=== PATIENT | female | born 1940 | race Caucasian/White ===

== ENCOUNTER 2016-11-15 19:14 | Emergency (ER) | payer MEDICARE, OTHER ==
[~2016-11-15] VITALS: Ht 154.9 cm; Wt 100.8 kg
[2016-11-15] VITALS (7 sets, daily range): BP systolic 199–236; BP diastolic 102–125; PULSE 64–81; RESP 18; TEMP 97.6; O2SAT 96–98
[~2016-11-15 19:14] MED LIST: ALPR0.25 PO; ARMO60TA PO; CALC0.5C6 PO; CLON0.1T PO; FLUO40CA PO; HYDR-3801 PO; LOSA100T PO
[2016-11-15] MEDS ORDERED: METOCLOPRAMIDE HCL 10 MG/2 ML VIAL IV PUSH ONE (20:00)
[2016-11-15] MEDS ORDERED: diphenhydrAMINE HCL 50 MG/ML VIAL IVP ONE (20:00)
[2016-11-15] MEDS ORDERED: KETOROLAC TROMETHAMINE 30 MG/ML (IVP) VIAL IVP ONE (20:00)
[2016-11-15] MEDS ORDERED: BENI40TA3 PO (20:02)
--- NOTE | 2016-11-15 20:15 | PD ---
HPI Chief Complaint: Hypertension Time Seen by Provider: 19:58 Travel History International Travel<30 days: No Contact w/Intl Traveler<30days: No Traveled to known affect area: No History of Present Illness HPI Patient is a 76-year-old female presents today with a bifrontal headache left greater than right with pain behind her high gradual in onset and not the worst headache she's ever had. Patient states she took her blood pressure multiple times at home and noticed was elevated. She states her blood pressure is managed primarily by her primary care physician Dr. Su, she takes Benicar as well as hydralazine. Patient states she used to follow with a auto inspection specialist Dr. Hays who had her on multiple antihypertensives with Dr. Su took her off some of them. Patient states she has an appointment with auto inspection specialist but not until February. Patient states that she has been here before and indeed her records show that she was here approximate 4 weeks ago for very similar presentation. She had a CAT scan as well as labs at that time she was given clonidine and hydralazine in the emergency department as well. Patient denies any chest pain shortness of breath dysuria blood in the urine at this time. Denies thunderclap presentation. PFSH Past Medical History Arthritis: Yes Asthma: No Anxiety: Yes Depression: No Heart Rhythm Problems: No Cancer: Yes (BASAL CELL SKIN CA) Cardiovascular Problems: Yes High Cholesterol: Yes Chest Pain: No Congestive Heart Failure: No COPD: No Diabetes: No Diminished Hearing: No Endocrine: Yes GERD: No Genitourinary: No Hepatitis: No Hiatal Hernia: No Hypertension: Yes Immune Disorder: No Implanted Vascular Access Dvce: Yes Medical other: Yes (GOUT - ANKLES) Musculoskeletal: Yes (ARTHRITIS, BACK PROBLEMS, SIATICA) Neurologic: No Psychiatric: Yes (CLAUSTROPHOBIC, ANXIETY,DEPRESSION) Reproductive: Yes (POST MENOPAUSAL BLEEDING, OVARIAN CYST) Respiratory: Yes (SLEEP APNEA) Immunizations Current: Yes Sleep Apnea: Yes Thyroid Disease: Yes Ulcer: No Tetanus Vaccination: Unknown Influenza Vaccination: Yes ?: Not Menopausal: Yes : 3 Para: 3 Miscarriage: 0 : 0 Past Surgical History Abdominal Surgery: Yes (CHOLECYSTECTOMY 1997) Cardiac Surgery: No Cholecystectomy: Yes Ear Surgery: No Endocrine Surgery: No Eye Surgery: No Genitourinary Surgery: Yes (PARTIAL LEFT KIDNEY REMOVAL--1967) Gynecologic Surgery: No Hysterectomy: Yes Joint Replacement: Yes (BILATERAL KNEES) Oral Surgery: No Pacemaker: No Thoracic Surgery: No Other Surgery: Yes (SALAVARY GLAND - LEFT) Social History Alcohol Use: No Tobacco Use: No Substance Use: No Allergies-Medications (Allergen,Severity, Reaction): Coded Allergies: Stelazine (Verified Allergy, Severe, 11/15/16) Reported Meds & Prescriptions Reported Meds & Active Scripts Active Reported Benicar (Olmesartan) 40 Mg Tab 40 Mg PO DAILY Hydralazine (Hydralazine HCl) 100 Mg Tab 100 Mg PO BID Take with meals Alprazolam 0.25 Mg Tab 0.25 Mg PO Q8H PRN Calcitriol 0.5 Mcg Cap 0.5 Mcg PO DAILY Fluoxetine (Fluoxetine HCl) 40 Mg Cap 40 Cap PO DAILY [place] Thyroid (Thyroid) 60 Mg Tab 60 Mg PO DAILY Review of Systems Except as stated in HPI: all other systems reviewed are Neg Physical Exam Narrative GENERAL: Well-developed well-nourished no apparent distress appears comfortable. SKIN: Warm and dry. HEAD: Atraumatic. Normocephalic. EYES: Pupils equal and round. No scleral icterus. No injection or drainage. ENT: No nasal bleeding or discharge. Mucous membranes pink and moist. NECK: Trachea midline. No JVD. CARDIOVASCULAR: Regular rate and rhythm. No murmur appreciated. RESPIRATORY: No accessory muscle use. Clear to auscultation. Breath sounds equal bilaterally. GASTROINTESTINAL: Abdomen soft, non-tender, nondistended. Hepatic and splenic margins not palpable. MUSCULOSKELETAL: No obvious deformities. No clubbing. No cyanosis. No edema. NEUROLOGICAL: Awake and alert. Cranial nerves II through XII are grossly intact and nonfocal, 5 out of 5 strength in all 4 extremities. PSYCHIATRIC: Appropriate mood and affect; insight and judgment normal. Data Data Last Documented VS Vital Signs Date Time Temp Pulse Resp B/P Pulse Ox O2 Delivery O2 Flow Rate FiO2 11/15/16 22:37 75 18 210/110 97 11/15/16 22:27 Room Air 11/15/16 19:35 97.6 Orders Complete Blood Count With Diff (11/15/16 19:58) Comprehensive Metabolic Panel (11/15/16 19:58) Ecg Monitoring (11/15/16 19:58) Iv Access Insert/Monitor (11/15/16 19:58) Oximetry (11/15/16 19:58) Ketorolac Inj (Toradol Inj) (11/15/16 20:00) Diphenhydramine Inj (Benadryl Inj) (11/15/16 20:00) Metoclopramide Inj (Reglan Inj) (11/15/16 20:00) Metoclopramide Inj (Reglan Inj) (11/15/16 22:00) Diphenhydramine Inj (Benadryl Inj) (11/15/16 21:15) Shoulder, Complete (>2vws) (11/15/16 ) Labs Laboratory Tests Test 11/15/16 20:15 White Blood Count 6.2 TH/MM3 Red Blood Count 4.26 MIL/MM3 Hemoglobin 12.9 GM/DL Hematocrit 38.2 % Mean Corpuscular Volume 89.7 FL Mean Corpuscular Hemoglobin 30.3 PG Mean Corpuscular Hemoglobin 33.8 % Concent Red Cell Distribution Width 12.0 % Platelet Count 264 TH/MM3 Mean Platelet Volume 8.4 FL Neutrophils (%) (Auto) 68.0 % Lymphocytes (%) (Auto) 19.9 % Monocytes (%) (Auto) 9.1 % Eosinophils (%) (Auto) 2.3 % Basophils (%) (Auto) 0.7 % Neutrophils # (Auto) 4.3 TH/MM3 Lymphocytes # (Auto) 1.2 TH/MM3 Monocytes # (Auto) 0.6 TH/MM3 Eosinophils # (Auto) 0.1 TH/MM3 Basophils # (Auto) 0.0 TH/MM3 CBC Comment DIFF FINAL Differential Comment Sodium Level 139 MEQ/L Potassium Level 3.9 MEQ/L Chloride Level 103 MEQ/L Carbon Dioxide Level 26.0 MEQ/L Anion Gap 10 MEQ/L Blood Urea Nitrogen 33 MG/DL Creatinine 1.30 MG/DL Estimat Glomerular Filtration 40 ML/MIN Rate Random Glucose 92 MG/DL Calcium Level 8.6 MG/DL Total Bilirubin 0.4 MG/DL Aspartate Amino Transf 20 U/L (AST/SGOT) Alanine Aminotransferase 20 U/L (ALT/SGPT) Alkaline Phosphatase 71 U/L Total Protein 6.6 GM/DL Albumin 2.9 GM/DL MDM Medical Decision Making Medical Screen Exam Complete: Yes Emergency Medical Condition: Yes Differential Diagnosis Headache, elevated blood pressure, hypertensive emergency extremely unlikely. Narrative Course Patient roomed in the emergency department, blood pressure is elevated. By a [facility] clinical position paper there is no indication to lower her blood pressure acutely. Her headache is of benign nature and extremely unlikely to have subarachnoid hemorrhage. We'll treat with Reglan and Benadryl. Reassess. Patient feeling somewhat better after first dose and was repeated and the patient's headache is nearly resolved this time. She appears well in no apparent distress. No indication for CAT scan at this time. The patient is stable for discharge, creatinine is at baseline otherwise labs today. Patient has no sign symptoms to suggest end organ failure and therefore not a hypertensive emergency. She has followed with a auto inspection specialist in the past for her blood pressure and discussed that she should call this auto inspection specialist for an appointment for blood pressure management. She is agreeable. Patient was discharged and While patient was leaving the hospital, she had a trip and fall on a rug in the lobby, and occurrence report is being filled out. Patient states she thinks her shoe discussed the floor and rolled the rug and she fell on the rug. She states she impacted her right side and did reach out to try and brace himself. She returned to her ER room and has complaints of right shoulder pain. Bilateral wrists are normal, bilateral elbows are negative , left shoulder is normal. Pulses motor and sensory intact in all 4 extremities. Compartments are soft. Her right shoulder has no swelling no bony tenderness no bruise. Patient denies any loss of consciousness. Denies any head neck or back trauma. Patient thinks that she thinks is just a sprain.. She does take care of her at home who is in a wheelchaira nd for that reason agrees for an x-ray. She was offered pain medicine for her shoulder and declined. X-ray was obtained which shows no acute bony abnormality. Patient was reexamined has no bruising no abrasion no swelling about the right shoulder. It is nontender to palpation. She is having an occasional spasm in the shoulder. C-spine is nontender and no step-off, head is atraumatic and normocephalic. Diagnosis Primary Impression: Headache Qualified Code: R51 - Nonintractable headache, unspecified chronicity pattern , unspecified headache type Additional Impression: Hypertension Qualified Code: I10 - Essential hypertension Disposition: 01 DISCHARGE HOME Condition: Stable Dean Mills MD Nov 15, 2016 20:15
[2016-11-15 20:19] LABS: AUTOMATED NEUTROPHIL # 4.3 TH/MM3 (1.8-7.7); BASOPHIL % 0.7 % (0.0-2.0); EOSINOPHIL # 0.1 TH/MM3 (0-0.4); EOSINOPHIL % 2.3 % (0.0-4.0); HEMATOCRIT 38.2 % (35.0-46.0); HEMO FLAGS DIFF FINAL; LYMPH % 19.9 % (9.0-44.0); LYMPHOCYTE # 1.2 TH/MM3 (1.0-4.8); MEAN CELL VOLUME 89.7 FL (80.0-100.0); MEAN CORPUSCULAR HEMOGLOBIN 30.3 PG (27.0-34.0); MEAN CORPUSCULAR HGB CONC 33.8 % (32.0-36.0); MONO % 9.1 % (0.0-8.0); PLATELET COUNT 264 TH/MM3 (150-450); RED BLOOD COUNT 4.26 MIL/MM3 (4.00-5.30); WHITE BLOOD COUNT 6.2 TH/MM3 (4.0-11.0)
[2016-11-15 20:27] LABS: CHLORIDE 103 MEQ/L (98-107); POTASSIUM 3.9 MEQ/L (3.5-5.1); SODIUM (NA) 139 MEQ/L (136-145)
[2016-11-15 20:31] LABS: ANION GAP 10 MEQ/L (5-15); BLOOD UREA NITROGEN 33 MG/DL (7-18)
[2016-11-15 20:34] LABS: ALT (GPT) 20 U/L (10-53); AST (GOT) 20 U/L (15-37); GLOMERULAR FILTRATION RATE 40 ML/MIN (>89)
[2016-11-15 20:36] LABS: TOTAL BILIRUBIN ADULT 0.4 MG/DL (0.2-1.0)
[2016-11-15 20:37] LABS: ALKALINE PHOSPHATASE 71 U/L (45-117)
[2016-11-15] MEDS ORDERED: diphenhydrAMINE HCL 50 MG/ML VIAL IV PUSH ONE (21:15)
[2016-11-15] MEDS ORDERED: METOCLOPRAMIDE HCL 10 MG/2 ML VIAL IV PUSH SCH (22:00)
--- NOTE | 2016-11-15 22:27 | RADHPO ---
EXAM DATE/TIME: 11/15/2016 22:02 [facility] COMPARISON: No previous studies available for comparison. INDICATIONS : Right shoulder pain post fall today. MEDICAL HISTORY : None. SURGICAL HISTORY : None. ENCOUNTER: Initial ACUITY: 1 day PAIN SCORE: 5/10 LOCATION: Right shoulder. FINDINGS: Multiple view examination of the right shoulder demonstrates no evidence of fracture or dislocation. The glenohumeral and acromioclavicular joints are maintained. There is normal range of motion betwe en internal and external rotation. Bony mineralization is normal. Mild degenerative changes of the a .c. joint CONCLUSION: No acute bony injury. Mild degenerative changes in the a.c. joint Colt Durbin MD on November 15, 2016 at 22:24 Board Certified Radiologist. This report was verified electronically.
== END 2016-11-15 22:38 | disposition home or self-care (01) ==
LOC: PHED 19:14
DX: R51 Headache (principal); I10 Essential (primary) hypertension; M25.511 Pain in right shoulder; M62.838 Other muscle spasm; E78.00 Pure hypercholesterolemia, unspecified; E07.9 Disorder of thyroid, unspecified; G47.30 Sleep apnea, unspecified; Z87.09 Personal history of other diseases of the respiratory system; Z86.59 Personal history of other mental and behavioral disorders; Z87.2 Personal history of diseases of the skin and subcutaneous tissue; Z86.79 Personal history of other diseases of the circulatory system; Z87.39 Personal history of other diseases of the musculoskeletal system and connective tissue; W01.0XXA Fall on same level from slipping, tripping and stumbling without subsequent striking against object, initial encounter; Y92.238 Other place in hospital as the place of occurrence of the external cause
CPT/HCPCS: 73030; 80053; 85025; 96374; 96375; 96376; 99284; J1200; J1885; J2765

== ENCOUNTER → 2017-03-03 | Outpatient (CLI) | payer MEDICARE ==
[~2017-03-03] MED LIST changes: +BENI40TA3 PO; -CLON0.1T PO; -LOSA100T PO
[2017-03-03 16:00] LABS: ALT (GPT) 45 U/L (10-53); ANION GAP 7 MEQ/L (5-15); AST (GOT) 36 U/L (15-37); BICARBONATE 23.3 MEQ/L (21.0-32.0); BLOOD UREA NITROGEN 37 MG/DL (7-18); CHLORIDE 110 MEQ/L (98-107); GLOMERULAR FILTRATION RATE 26 ML/MIN (>89); GLUCOSE,FASTING 88 MG/DL (74-99); POTASSIUM 6.5 MEQ/L (3.5-5.1); SODIUM (NA) 140 MEQ/L (136-145)
[2017-03-03 16:10] LABS: ALKALINE PHOSPHATASE 71 U/L (45-117); HDL CHOLESTEROL 71.4 MG/DL (40.0-60.0); LDL CHOLESTEROL 110 MG/DL (0-99); TOTAL BILIRUBIN ADULT 0.5 MG/DL (0.2-1.0)
[2017-03-03 16:15] LABS: MICRO ALBUMIN RANDOM URINE RAW 81.8 MG/L (0.0-30.0)
== END ==
LOC: PLAB 12:36
PROVIDERS: ATTEND Family Medicine
DX: N18.3 Chronic kidney disease, stage 3 (moderate) (principal); I12.9 Hypertensive chronic kidney disease with stage 1 through stage 4 chronic kidney disease, or unspecified chronic kidney disease; N25.81 Secondary hyperparathyroidism of renal origin; E78.4 Other hyperlipidemia; M10.9 Gout, unspecified
CPT/HCPCS: 36415; 80053; 80061; 82043; 84443; 84550

== ENCOUNTER → 2017-08-20 | Outpatient (CLI) | payer MEDICARE ==
[2017-08-20 14:00] LABS: AUTOMATED NEUTROPHIL # 4.3 TH/MM3 (1.8-7.7); BASOPHIL # 0.1 TH/MM3 (0-0.2); BASOPHIL % 1.1 % (0.0-2.0); EOSINOPHIL # 0.1 TH/MM3 (0-0.4); EOSINOPHIL % 1.5 % (0.0-4.0); HEMATOCRIT 37.7 % (35.0-46.0); HEMO FLAGS DIFF FINAL; LYMPH % 13.3 % (9.0-44.0); LYMPHOCYTE # 0.8 TH/MM3 (1.0-4.8); MEAN CORPUSCULAR HEMOGLOBIN 30.8 PG (27.0-34.0); MEAN CORPUSCULAR HGB CONC 32.8 % (32.0-36.0); MONO % 7.8 % (0.0-8.0); NEUT % 76.3 % (16.0-70.0); PLATELET COUNT 308 TH/MM3 (150-450); RED BLOOD COUNT 4.01 MIL/MM3 (4.00-5.30); RED CELL DISTRIBUTION WIDTH 13.6 % (11.6-17.2); WHITE BLOOD COUNT 5.7 TH/MM3 (4.0-11.0)
[2017-08-20 14:05] LABS: BLOOD, URINE NEG (NEG); COMMENT (UR) CULTURE INDICATED; CULTURE IF INDICATED CULTURE INDICATED; GLUCOSE,URINE 300 mg/dL (NEG); KETONE, URINE NEG (NEG); MUCUS URINE FEW /lpf (OCC); NITRITE,URINE NEG (NEG); PH, URINE 5.5 (5.0-8.5); SQUAMOUS EPITHELIAL CELL URINE 2 /hpf (0-5); URINE COLOR YELLOW (YELLW/STRAW)
[2017-08-20 14:06] LABS: BACTERIA, URINE RARE /hpf
[2017-08-20 14:18] LABS: ANION GAP 9 MEQ/L (5-15); AST (GOT) 17 U/L (15-37); BICARBONATE 24.2 MEQ/L (21.0-32.0); BLOOD UREA NITROGEN 32 MG/DL (7-18); CHLORIDE 103 MEQ/L (98-107); GLOMERULAR FILTRATION RATE 33 ML/MIN (>89); GLUCOSE,FASTING 80 MG/DL (74-99); POTASSIUM 3.9 MEQ/L (3.5-5.1); SODIUM (NA) 136 MEQ/L (136-145)
[2017-08-20 14:20] LABS: ALT (GPT) 17 U/L (10-53)
[2017-08-20 14:29] LABS: ALKALINE PHOSPHATASE 84 U/L (45-117); HDL CHOLESTEROL 75.4 MG/DL (40.0-60.0); LDL CHOLESTEROL 119 MG/DL (0-99); TOTAL BILIRUBIN ADULT 0.4 MG/DL (0.2-1.0)
== END ==
LOC: PLAB 10:53
PROVIDERS: ATTEND Family Medicine
DX: M10.9 Gout, unspecified (principal); E78.4 Other hyperlipidemia; E03.9 Hypothyroidism, unspecified; I12.9 Hypertensive chronic kidney disease with stage 1 through stage 4 chronic kidney disease, or unspecified chronic kidney disease; N18.3 Chronic kidney disease, stage 3 (moderate); R82.90 Unspecified abnormal findings in urine
CPT/HCPCS: 36415; 80053; 80061; 81001; 82043; 84443; 84550; 85025; 87086

== ENCOUNTER → 2017-09-04 | Outpatient (CLI) | payer MEDICARE ==
[2017-09-04 13:38] LABS: BICARBONATE 26.3 MEQ/L (21.0-32.0); POTASSIUM 3.9 MEQ/L (3.5-5.1)
[2017-09-04 13:48] LABS: FREE T4 1.13 NG/DL (0.76-1.46)
== END ==
LOC: PLAB 09:41
DX: E03.9 Hypothyroidism, unspecified (principal)
CPT/HCPCS: 36415; 80048; 84439; 84443

== ENCOUNTER → 2017-09-18 | Outpatient (CLI) | payer MEDICARE ==
[~2017-09-18] MED LIST changes: +BENI40TA29 PO; -BENI40TA3 PO; +CALC0.5C PO; -CALC0.5C6 PO
[2017-09-18 14:03] LABS: ANION GAP 6 MEQ/L (5-15); AST (GOT) 28 U/L (15-37); BICARBONATE 27.3 MEQ/L (21.0-32.0); BLOOD UREA NITROGEN 36 MG/DL (7-18); CHLORIDE 106 MEQ/L (98-107); GLOMERULAR FILTRATION RATE 39 ML/MIN (>89); GLUCOSE,FASTING 85 MG/DL (74-99); POTASSIUM 3.9 MEQ/L (3.5-5.1); SODIUM (NA) 139 MEQ/L (136-145)
[2017-09-18 14:14] LABS: ALKALINE PHOSPHATASE 75 U/L (45-117); ALT (GPT) 29 U/L (10-53); HDL CHOLESTEROL 79.1 MG/DL (40.0-60.0); LDL CHOLESTEROL 137 MG/DL (0-99); TOTAL BILIRUBIN ADULT 0.3 MG/DL (0.2-1.0); URIC ACID 2.6 MG/DL (2.6-6.0)
== END ==
LOC: PLAB 09:36
PROVIDERS: ATTEND Family Medicine
DX: M10.9 Gout, unspecified (principal); E78.4 Other hyperlipidemia; E03.9 Hypothyroidism, unspecified; N18.3 Chronic kidney disease, stage 3 (moderate)
CPT/HCPCS: 36415; 80053; 80061; 84443; 84550

== ENCOUNTER → 2017-10-15 | Outpatient (CLI) | payer MEDICARE ==
[2017-10-15 13:33] LABS: ALT (GPT) 22 U/L (10-53); ANION GAP 6 MEQ/L (5-15); AST (GOT) 20 U/L (15-37); BICARBONATE 28.5 MEQ/L (21.0-32.0); BLOOD UREA NITROGEN 35 MG/DL (7-18); CHLORIDE 107 MEQ/L (98-107); GLOMERULAR FILTRATION RATE 38 ML/MIN (>89); GLUCOSE,FASTING 78 MG/DL (74-99); POTASSIUM 4.2 MEQ/L (3.5-5.1); SODIUM (NA) 141 MEQ/L (136-145); URIC ACID 6.1 MG/DL (2.6-6.0)
[2017-10-15 13:43] LABS: ALKALINE PHOSPHATASE 67 U/L (45-117); TOTAL BILIRUBIN ADULT 0.3 MG/DL (0.2-1.0)
[2017-10-15 13:54] LABS: MICRO ALBUMIN RANDOM URINE RAW 36.5 MG/L (0.0-30.0)
== END ==
LOC: PLAB 09:59
PROVIDERS: ATTEND Family Medicine
DX: N18.3 Chronic kidney disease, stage 3 (moderate) (principal); E55.9 Vitamin D deficiency, unspecified; R80.9 Proteinuria, unspecified; M10.9 Gout, unspecified; E03.9 Hypothyroidism, unspecified
CPT/HCPCS: 36415; 80053; 82043; 82306; 84443; 84550

== ENCOUNTER → 2017-11-23 | Outpatient (CLI) | payer MEDICARE ==
[2017-11-23 14:01] LABS: BACTERIA, URINE RARE /hpf; BILIRUBIN, URINE NEG (NEG); BLOOD, URINE NEG (NEG); GLUCOSE,URINE NEG (NEG); HYALINE CAST, URINE 3 /lpf (RARE); KETONE, URINE NEG (NEG); NITRITE,URINE NEG (NEG); SQUAMOUS EPITHELIAL CELL URINE 2 /hpf (0-5); TRANSITIONAL EPI CELLS, URINE <1 /hpf; URINE COLOR YELLOW (YELLW/STRAW); URINE LEUKOCYTE ESTERASE SMALL (NEG)
[2017-11-23 14:06] LABS: ALBUMIN 3.3 GM/DL (3.4-5.0); AST (GOT) 19 U/L (15-37); BICARBONATE 28.9 MEQ/L (21.0-32.0); BLOOD UREA NITROGEN 25 MG/DL (7-18); CALCIUM 9.2 MG/DL (8.5-10.1); CHLORIDE 104 MEQ/L (98-107); CREATININE 1.44 MG/DL (0.50-1.00); GLOMERULAR FILTRATION RATE 35 ML/MIN (>89); GLUCOSE,FASTING 90 MG/DL (74-99); SODIUM (NA) 140 MEQ/L (136-145)
[2017-11-23 14:07] LABS: ALT (GPT) 29 U/L (10-53)
[2017-11-23 14:16] LABS: ALKALINE PHOSPHATASE 75 U/L (45-117); TOTAL BILIRUBIN ADULT 0.5 MG/DL (0.2-1.0); TOTAL PROTEIN 7.1 GM/DL (6.4-8.2)
== END ==
LOC: PLAB 09:28
PROVIDERS: ATTEND Family Medicine
DX: R80.9 Proteinuria, unspecified (principal); N18.3 Chronic kidney disease, stage 3 (moderate); M10.9 Gout, unspecified; E03.9 Hypothyroidism, unspecified; E55.9 Vitamin D deficiency, unspecified; N39.41 Urge incontinence
CPT/HCPCS: 36415; 80053; 81001; 82043; 82306; 84443; 84550

== ENCOUNTER → 2017-12-14 | Outpatient (CLI) | payer MEDICARE ==
[2017-12-14 16:33] LABS: AUTOMATED NEUTROPHIL # 4.5 TH/MM3 (1.8-7.7); BASOPHIL # 0.1 TH/MM3 (0-0.2); EOSINOPHIL # 0.1 TH/MM3 (0-0.4); EOSINOPHIL % 1.4 % (0.0-4.0); HEMATOCRIT 34.1 % (35.0-46.0); HEMOGLOBIN 11.3 GM/DL (11.6-15.3); LYMPH % 17.3 % (9.0-44.0); LYMPHOCYTE # 1.1 TH/MM3 (1.0-4.8); MEAN CELL VOLUME 90.9 FL (80.0-100.0); MEAN CORPUSCULAR HEMOGLOBIN 30.2 PG (27.0-34.0); MEAN CORPUSCULAR HGB CONC 33.2 % (32.0-36.0); MONO % 8.5 % (0.0-8.0); MONOCYTE # 0.5 TH/MM3 (0-0.9); NEUT % 71.8 % (16.0-70.0); PLATELET COUNT 264 TH/MM3 (150-450); RED BLOOD COUNT 3.76 MIL/MM3 (4.00-5.30); RED CELL DISTRIBUTION WIDTH 14.6 % (11.6-17.2); WHITE BLOOD COUNT 6.3 TH/MM3 (4.0-11.0)
[2017-12-14 16:58] LABS: ALBUMIN 3.3 GM/DL (3.4-5.0); AST (GOT) 19 U/L (15-37); BLOOD UREA NITROGEN 33 MG/DL (7-18); CALCIUM 9.4 MG/DL (8.5-10.1); CHLORIDE 108 MEQ/L (98-107); CREATININE 1.41 MG/DL (0.50-1.00); GLOMERULAR FILTRATION RATE 36 ML/MIN (>89); GLUCOSE,RANDOM 82 MG/DL (74-106); SODIUM (NA) 140 MEQ/L (136-145)
[2017-12-14 16:59] LABS: ALT (GPT) 21 U/L (10-53); C-REACTIVE PROTEIN LESS THAN 0.29 MG/DL (0.00-0.30)
[2017-12-14 17:01] LABS: ALKALINE PHOSPHATASE 66 U/L (45-117); TOTAL BILIRUBIN ADULT 0.5 MG/DL (0.2-1.0); WESTERGREN SEDIMENTATION RATE 18 mm/hr (0-30)
[2017-12-14 17:20] LABS: RHEUMATOID FACTOR SCREEN NEGATIVE (NEGATIVE)
[2017-12-14 17:33] LABS: BILIRUBIN, URINE NEG (NEG); BLOOD, URINE NEG (NEG); GLUCOSE,URINE NEG (NEG); KETONE, URINE NEG (NEG); NITRITE,URINE NEG (NEG); PH, URINE 5.5 (5.0-8.5); SQUAMOUS EPITHELIAL CELL URINE 1 /hpf (0-5); URINE COLOR YELLOW (YELLW/STRAW); URINE LEUKOCYTE ESTERASE SMALL (NEG)
[2017-12-15 11:31] LABS: HEPATITIS B SURFACE ANTIGEN NEGATIVE (NEGATIVE)
[2017-12-15 12:46] LABS: HEPATITIS C AB IgG NEGATIVE (NEGATIVE)
[2017-12-17 13:53] LABS: HEPATITIS B CORE TOTAL AB NONREACTIVE (NON-REACTVE)
== END ==
LOC: PLAB 14:21
DX: M19.90 Unspecified osteoarthritis, unspecified site (principal)
CPT/HCPCS: 36415; 80053; 81001; 85025; 85652; 86140; 86200; 86317; 86430; 86704; 86803; 87340

== ENCOUNTER 2017-12-26 11:00 | Emergency (ER) | payer MEDICARE ==
[~2017-12-26] VITALS: Ht 154.9 cm; Wt 102.5 kg
[2017-12-26 11:11] VITALS: BP 158/74; PULSE 82; RESP 16; TEMP 97.4; O2SAT 97
[2017-12-26] MEDS ORDERED: DOXA1TAB36 PO (12:10)
[2017-12-26] MEDS ORDERED: TRAZ50TA12 PO (12:10)
[2017-12-26] MEDS ORDERED: ALLO300T2 PO (12:10)
[2017-12-26] MEDS ORDERED: AMLO10TA2 PO (12:10)
[2017-12-26] MEDS ORDERED: ISOS30TA3 PO (12:11)
--- NOTE | 2017-12-26 12:29 | PD ---
HPI Chief Complaint: Abdominal Pain Time Seen by Provider: 12:13 Travel History International Travel<30 days: No Contact w/Intl Traveler<30days: No Traveled to known affect area: No History of Present Illness HPI The patient was seen and examined in the presence of the nurse. This patient complains of abdominal pain. Duration 3 days. Severity is moderate. Location is bilateral lower quadrants. No vomiting or diarrhea or fever. Has decreased appetite. No alleviating factors. No exacerbating factors. Said diverticulitis in the past. PFSH Past Medical History Arthritis: Yes Asthma: No Anxiety: Yes Depression: Yes Heart Rhythm Problems: No Cancer: Yes (BASAL CELL SKIN CA) Cardiovascular Problems: Yes (htn on meds, chf) High Cholesterol: Yes Chest Pain: No Congestive Heart Failure: No COPD: No Diabetes: No Diminished Hearing: No Endocrine: Yes GERD: No Genitourinary: No Hepatitis: No Hiatal Hernia: No Hypertension: Yes Immune Disorder: No Medical other: Yes (GOUT - ANKLES) Musculoskeletal: Yes (ARTHRITIS, BACK PROBLEMS, SIATICA) Neurologic: No Psychiatric: Yes (CLAUSTROPHOBIC, ANXIETY,DEPRESSION) Reproductive: Yes (POST MENOPAUSAL BLEEDING, OVARIAN CYST) Respiratory: Yes (SLEEP APNEA) Immunizations Current: Yes Sleep Apnea: Yes Thyroid Disease: Yes (hypo) Ulcer: No Tetanus Vaccination: < 5 Years Influenza Vaccination: Yes ?: Not Menopausal: Yes : 3 Para: 3 Miscarriage: 0 : 0 Past Surgical History Abdominal Surgery: Yes (CHOLECYSTECTOMY 1997) Cardiac Surgery: No Cholecystectomy: Yes Ear Surgery: No Endocrine Surgery: No Eye Surgery: No Genitourinary Surgery: Yes (PARTIAL LEFT KIDNEY REMOVAL--1967) Gynecologic Surgery: No Hysterectomy: Yes Joint Replacement: Yes (BILATERAL KNEES and right hip) Oral Surgery: No Pacemaker: No Thoracic Surgery: No Other Surgery: Yes (SALAVARY GLAND - LEFT) Social History Alcohol Use: No Tobacco Use: No Substance Use: No Allergies-Medications (Allergen,Severity, Reaction): Coded Allergies: trifluoperazine (Unverified Allergy, Severe, 12/26/17) Reported Meds & Prescriptions Reported Meds & Active Scripts Active Flagyl (Metronidazole) 500 Mg Tab 500 Mg PO QID 10 Days Cipro (Ciprofloxacin HCl) 500 Mg Tab 500 Mg PO BID 10 Days Percocet (Oxycodone-Acetaminophen) 5-325 mg Tab 1 Tab PO Q6H PRN Reported Isosorbide Mononitrate ER (Isosorbide Mononitrate) 30 Mg [place] 30 Mg PO DAILY Trazodone (Trazodone HCl) 50 Mg Tab 50 Mg PO HS Doxazosin (Doxazosin Mesylate) 1 Mg Tab 0.25 Mg PO DAILY Amlodipine (Amlodipine Besylate) 10 Mg Tab 10 Mg PO DAILY Allopurinol 300 Mg Tab 300 Mg PO DAILY Benicar (Olmesartan) 40 Mg Tab 40 Mg PO DAILY Hydralazine (Hydralazine HCl) 100 Mg Tab 100 Mg PO BID Take with meals Alprazolam 0.25 Mg Tab 0.25 Mg PO Q8H PRN Calcitriol 0.5 Mcg Cap 0.5 Mcg PO DAILY Fluoxetine (Fluoxetine HCl) 40 Mg Cap 40 Cap PO DAILY [place] Thyroid (Thyroid) 60 Mg Tab 60 Mg PO DAILY Review of Systems General / Constitutional: No: Fever Eyes: No: Visual changes HENT: No: Headaches Cardiovascular: No: Chest Pain or Discomfort Respiratory: No: Shortness of Breath Gastrointestinal: Positive: Abdominal Pain, Loss of Appetite Genitourinary: No: Dysuria Musculoskeletal: No: Pain Skin: No Rash Neurologic: No: Weakness Psychiatric: No: Depression Endocrine: No: Polydipsia Hematologic/Lymphatic: No: Easy Bruising Physical Exam Narrative GENERAL: Well-nourished, well-developed patient with abdominal pain . SKIN: Focused skin assessment reveals no rash and nodules. Skin is Warm and dry. HEAD: Atraumatic. Normocephalic. EYES: Pupils equal and round. No scleral icterus. No injection or drainage. ENT: No nasal bleeding or discharge. Mucous membranes pink and moist. NECK: Trachea midline. No JVD. CARDIOVASCULAR: Regular rate and rhythm. No murmur appreciated. RESPIRATORY: No accessory muscle use. Clear to auscultation. Breath sounds equal bilaterally. GASTROINTESTINAL: Abdomen soft, bilateral lower quadrant tenderness without rebound or guarding, nondistended. Hepatic and splenic margins not palpable. MUSCULOSKELETAL: No obvious deformities. No clubbing. No cyanosis. No edema. NEUROLOGICAL: Awake and alert. No obvious cranial nerve deficits. Motor grossly within normal limits. Normal speech. PSYCHIATRIC: Appropriate mood and affect; insight and judgment normal. Data Data Last Documented VS Vital Signs Date Time Temp Pulse Resp B/P (MAP) Pulse Ox O2 Delivery O2 Flow Rate FiO2 2/17/18 14:11 66 20 173/81 (111) 98 Room Air 12/26/17 11:11 97.4 Orders Orders Basic Metabolic Panel (Bmp) (12/26/17 12:19) Complete Blood Count With Diff (12/26/17 12:19) Prothrombin Time / Inr (Pt) (12/26/17 12:19) Act Partial Throm Time (Ptt) (12/26/17 12:19) Urinalysis - C+S If Indicated (12/26/17 12:19) Iv Access Insert/Monitor (12/26/17 12:19) NPO (12/26/17 12:19) Sodium Chloride 0.9% Flush (Ns Flush) (12/26/17 12:30) Ct Abd/Pel W/O Iv Contrast (12/26/17 12:19) Labs Laboratory Tests Test 12/26/17 12:30 12/26/17 13:15 White Blood Count 11.4 TH/MM3 Red Blood Count 4.04 MIL/MM3 Hemoglobin 11.9 GM/DL Hematocrit 36.3 % Mean Corpuscular Volume 89.9 FL Mean Corpuscular Hemoglobin 29.4 PG Mean Corpuscular Hemoglobin Concent 32.7 % Red Cell Distribution Width 13.6 % Platelet Count 229 TH/MM3 Mean Platelet Volume 8.3 FL Neutrophils (%) (Auto) 90.7 % Lymphocytes (%) (Auto) 4.9 % Monocytes (%) (Auto) 3.6 % Eosinophils (%) (Auto) 0.6 % Basophils (%) (Auto) 0.2 % Neutrophils # (Auto) 10.3 TH/MM3 Lymphocytes # (Auto) 0.6 TH/MM3 Monocytes # (Auto) 0.4 TH/MM3 Eosinophils # (Auto) 0.1 TH/MM3 Basophils # (Auto) 0.0 TH/MM3 CBC Comment DIFF FINAL Differential Comment Prothrombin Time 10.2 SEC Prothromb Time International Ratio 1.0 RATIO Activated Partial Thromboplast Time 27.3 SEC Blood Urea Nitrogen 27 MG/DL Creatinine 1.30 MG/DL Random Glucose 95 MG/DL Calcium Level 9.2 MG/DL Sodium Level 137 MEQ/L Potassium Level 4.1 MEQ/L Chloride Level 103 MEQ/L Carbon Dioxide Level 27.3 MEQ/L Anion Gap 7 MEQ/L Estimat Glomerular Filtration Rate 40 ML/MIN Urine Collection Type CLEAN CATCH Urine Color YELLOW Urine Turbidity CLEAR Urine pH 5.5 Urine Specific [place] 1.012 Urine Protein NEG mg/dL Urine Glucose (UA) NEG mg/dL Urine Ketones NEG mg/dL Urine Occult Blood NEG Urine Nitrite NEG Urine Bilirubin NEG Urine Leukocyte Esterase NEG Urine Squamous Epithelial Cells 0-5 /hpf Urine Transitional Epithelial Cells 0-5 /hpf Urine Amorphous Sediment FEW Microscopic Urinalysis Comment CULT NOT INDICATED Urine Collection Time 1315 [facility] [place] Medical Decision Making Medical Screen Exam Complete: Yes Emergency Medical Condition: Yes Medical Record Reviewed: Yes Differential Diagnosis Colitis, diverticulitis, AAA Narrative Course I have reviewed the patient's electronic medical record. I've ordered extensive abdominal pain workup at 1220 This includes labs and CT and urine Labs and urine are fairly normal. CT suggests mild to moderate diverticulitis I wrote her antibiotics and something for pain Stable for outpatient follow-up Diagnosis Primary Impression: Acute diverticulitis Additional Instructions: The patient was advised to follow up with their physician and return if they worsen. The patient was warned about potential sedation for the medications they will receive on prescription. Med/Other Pt SpecificInfo: Prescription(s) given Scripts Metronidazole (Flagyl) 500 Mg Tab 500 MG PO QID for Infection for 10 Days, TAB 0 Refills Prov: Dave Gallagher MD 12/26/17 Ciprofloxacin (Cipro) 500 Mg Tab 500 MG PO BID for Infection for 10 Days, #20 TAB 0 Refills Prov: Dave Gallagher MD 12/26/17 Oxycodone-Acetaminophen (Percocet) 5-325 mg Tab 1 TAB PO Q6H Y for PAIN, #20 TAB 0 Refills Prov: Dave Gallagher MD 12/26/17 Disposition: 01 DISCHARGE HOME Condition: Stable Dave Gallagher MD Dec 26, 2017 12:29
[2017-12-26] MEDS ORDERED: SODIUM CHLORIDE 0.9% FLUSH 10 ML FLUSH IV FLUSH PRN (12:30)
[2017-12-26 12:40] LABS: AUTOMATED NEUTROPHIL # 10.3 TH/MM3 (1.8-7.7); BASOPHIL % 0.2 % (0.0-2.0); EOSINOPHIL # 0.1 TH/MM3 (0-0.4); EOSINOPHIL % 0.6 % (0.0-4.0); HEMATOCRIT 36.3 % (35.0-46.0); HEMOGLOBIN 11.9 GM/DL (11.6-15.3); LYMPH % 4.9 % (9.0-44.0); LYMPHOCYTE # 0.6 TH/MM3 (1.0-4.8); MEAN CELL VOLUME 89.9 FL (80.0-100.0); MEAN CORPUSCULAR HEMOGLOBIN 29.4 PG (27.0-34.0); MEAN CORPUSCULAR HGB CONC 32.7 % (32.0-36.0); MEAN PLATELET VOLUME 8.3 FL (7.0-11.0); MONO % 3.6 % (0.0-8.0); MONOCYTE # 0.4 TH/MM3 (0-0.9); NEUT % 90.7 % (16.0-70.0); PLATELET COUNT 229 TH/MM3 (150-450); RED BLOOD COUNT 4.04 MIL/MM3 (4.00-5.30); RED CELL DISTRIBUTION WIDTH 13.6 % (11.6-17.2); WHITE BLOOD COUNT 11.4 TH/MM3 (4.0-11.0)
[2017-12-26 12:51] LABS: BICARBONATE 27.3 MEQ/L (21.0-32.0); CALCIUM 9.2 MG/DL (8.5-10.1)
[2017-12-26 12:54] LABS: CREATININE 1.3 MG/DL (0.50-1.00); PROTHROMBIN TIME - PATIENT 10.2 SEC (9.8-11.6)
[2017-12-26 13:34] LABS: BILIRUBIN, URINE NEG (NEG); BLOOD, URINE NEG (NEG); GLUCOSE,URINE NEG (NEG); KETONE, URINE NEG (NEG); NITRITE,URINE NEG (NEG); PH, URINE 5.5 (5.0-8.5); URINE LEUKOCYTE ESTERASE NEG (NEG)
[2017-12-26 13:43] LABS: URINE COLOR YELLOW (YELLW/STRAW)
[2017-12-26 13:44] LABS: AMORPHOUS SEDIMENT, URINE FEW; SQUAMOUS EPITHELIAL CELL URINE 0-5 /hpf (0-5); TRANSITIONAL EPI CELLS, URINE 0-5 /hpf
--- NOTE | 2017-12-26 14:01 | RADRPT ---
EXAM DATE/TIME: 12/26/2017 13:31 [facility] COMPARISON: No previous studies available for comparison. INDICATIONS : Lower abdominal pain radiating to the back. ORAL CONTRAST: No oral contrast ingested. RADIATION DOSE: 23.46 CTDIvol (mGy) MEDICAL HISTORY : Cardiovascular disease. Hypertension. SURGICAL HISTORY : Cholecystectomy. Stahe 3 renal disease. Partial left nephrectomy. ENCOUNTER: Initial ACUITY: 3 days PAIN SCALE: 4/10 LOCATION: Bilateral lower quadrant TECHNIQUE: Volumetric scanning of the abdomen and pelvis was performed. Using automated exposure control and ad justment of the mA and/or kV according to patient size, radiation dose was kept as low as reasonably achievable to obtain optimal diagnostic quality images. DICOM format image data is available electro nically for review and comparison. FINDINGS: LOWER LUNGS: The visualized lower lungs are clear. Small pericardial effusion. LIVER: 2.1 x 2.0 cm hypodense lesion in segment 6 of the liver which correlates with prior CT reports of a s imilar sized hemangioma. Gallbladder is surgically absent. SPLEEN: Small splenic calcifications without focal abnormality. PANCREAS: Within normal limits. KIDNEYS: Kidneys are symmetrical in size and demonstrate lobulated contour. There is a 2.5 cm cyst in the mid right kidney. No radiopaque renal calculi or hydronephrosis. No significant contour deforming mass. ADRENAL GLANDS: Within normal limits. VASCULAR: There is no aortic aneurysm. BOWEL/MESENTERY: There is mild to moderate sigmoid diverticulosis with moderate inflammatory stranding and trace free fluid adjacent the mid to distal sigmoid colon consistent with diverticulitis. No free air or focal d rainable fluid collection at this time. Scattered colonic diverticula are noted throughout the remain brie of the colon. Bowel otherwise appears unremarkable. ABDOMINAL WALL: Small [place] periumbilical hernia containing a normal appearing loop of small bowel. RETROPERITONEUM: There is no lymphadenopathy. BLADDER: Decompressed and largely obscured by beam artifact from right hip arthroplasty. REPRODUCTIVE: Not well demonstrated. INGUINAL: There is no lymphadenopathy or hernia. MUSCULOSKELETAL: Right hip arthroplasty in place. Vertebral body heights are intact with degenerative spondylosis note d in the lumbar spine. CONCLUSION: 1. Mild to moderate uncomplicated diverticulitis of the mid to distal sigmoid colon. No focal drainab le fluid collection or perforation at this time. 2. Stable ancillary findings, as above. Isac Grossman MD on December 26, 2017 at 13:53 Board Certified Radiologist. This report was verified electronically.
[2017-12-26 14:11] VITALS: BP 173/81; PULSE 66; RESP 20; O2SAT 98
[2017-12-26] MEDS ORDERED: CIPR-9 PO (14:39)
[2017-12-26] MEDS ORDERED: METR-1 PO (14:39)
[2017-12-26] MEDS ORDERED: PERC5TAB12 PO (14:39)
== END 2017-12-26 15:08 | disposition home or self-care (01) ==
LOC: PHED 11:00
DX: K57.92 Diverticulitis of intestine, part unspecified, without perforation or abscess without bleeding (principal); I50.9 Heart failure, unspecified
CPT/HCPCS: 74176; 80048; 81001; 85025; 85610; 85730; 99284

== ENCOUNTER → 2018-03-09 | Outpatient (CLI) | payer MEDICARE ==
[~2018-03-09] MED LIST changes: +ALLO300T2 PO; +AMLO10TA2 PO; +CIPR-9 PO; +DOXA1TAB36 PO; +ISOS30TA3 PO; +METR-1 PO; +PERC5TAB12 PO; +TRAZ50TA12 PO
[2018-03-09 19:06] LABS: ALBUMIN 3.3 GM/DL (3.4-5.0); AST (GOT) 21 U/L (15-37); BICARBONATE 28.6 MEQ/L (21.0-32.0); BLOOD UREA NITROGEN 34 MG/DL (7-18); CALCIUM 9.3 MG/DL (8.5-10.1); CHLORIDE 108 MEQ/L (98-107); CREATININE 1.33 MG/DL (0.50-1.00); GLOMERULAR FILTRATION RATE 39 ML/MIN (>89); GLUCOSE,FASTING 90 MG/DL (74-99); SODIUM (NA) 143 MEQ/L (136-145)
[2018-03-09 19:08] LABS: ALT (GPT) 23 U/L (10-53); CHOLESTEROL 211 MG/DL (120-200); TRIGLYCERIDES 55 MG/DL (42-150)
[2018-03-09 19:10] LABS: ALKALINE PHOSPHATASE 74 U/L (45-117); CHOLESTEROL/ HDL RATIO 2.95 RATIO; HDL CHOLESTEROL 71.4 MG/DL (40.0-60.0); LDL CHOLESTEROL 129 MG/DL (0-99); TOTAL BILIRUBIN ADULT 0.5 MG/DL (0.2-1.0); TOTAL PROTEIN 7.3 GM/DL (6.4-8.2)
[2018-03-09 19:16] LABS: FREE T3 3.54 PG/ML (2.18-3.98); FREE T4 0.99 NG/DL (0.76-1.46)
== END ==
LOC: PLAB 12:37
DX: E78.4 Other hyperlipidemia (principal); E03.9 Hypothyroidism, unspecified; I12.9 Hypertensive chronic kidney disease with stage 1 through stage 4 chronic kidney disease, or unspecified chronic kidney disease; N18.3 Chronic kidney disease, stage 3 (moderate); N25.81 Secondary hyperparathyroidism of renal origin
CPT/HCPCS: 36415; 80053; 80061; 83970; 84439; 84443; 84481

== ENCOUNTER → 2018-04-30 | Outpatient (CLI) | payer MEDICARE ==
[2018-04-30 14:07] LABS: ALBUMIN 3.2 GM/DL (3.4-5.0); AST (GOT) 20 U/L (15-37); BLOOD UREA NITROGEN 39 MG/DL (7-18); CALCIUM 9.6 MG/DL (8.5-10.1); CHLORIDE 107 MEQ/L (98-107); GLOMERULAR FILTRATION RATE 31 ML/MIN (>89); GLUCOSE,FASTING 83 MG/DL (74-99); SODIUM (NA) 141 MEQ/L (136-145)
[2018-04-30 14:08] LABS: ALT (GPT) 18 U/L (10-53); CHOLESTEROL 199 MG/DL (120-200)
[2018-04-30 14:11] LABS: ALKALINE PHOSPHATASE 75 U/L (45-117); CHOLESTEROL/ HDL RATIO 2.88 RATIO; LDL CHOLESTEROL 121 MG/DL (0-99); TOTAL BILIRUBIN ADULT 0.4 MG/DL (0.2-1.0); TOTAL PROTEIN 7.5 GM/DL (6.4-8.2); TRIGLYCERIDES 44 MG/DL (42-150)
== END ==
LOC: PLAB 11:21
DX: N25.81 Secondary hyperparathyroidism of renal origin (principal); I12.9 Hypertensive chronic kidney disease with stage 1 through stage 4 chronic kidney disease, or unspecified chronic kidney disease; N18.3 Chronic kidney disease, stage 3 (moderate); E78.4 Other hyperlipidemia
CPT/HCPCS: 36415; 80053; 80061; 83970